=== PATIENT | male | born 1950 | race Caucasian/White ===

== ENCOUNTER 2019-10-21 07:27 | Emergency (ER) | payer OTHER ==
[~2019-10-21] VITALS: Ht 185.4 cm; Wt 73.0 kg
[2019-10-21 07:30] VITALS: BP 167/110
--- NOTE | 2019-10-21 07:51 | NUR ---
Patient ambulated to room with steady gait. Patient don gown. Patient brought with him from home a hard stool sample. Awaiting MD arrival.
== END 2019-10-21 08:50 | disposition home or self-care (01) ==
LOC: ER 07:27
DX: K59.00 Constipation, unspecified (principal); F12.90 Cannabis use, unspecified, uncomplicated
CPT/HCPCS: 99281

== ENCOUNTER 2020-09-23 17:19 | Emergency (ER) | payer OTHER, MEDICARE ==
[~2020-09-23] VITALS: Ht 185.4 cm; Wt 79.5 kg
[2020-09-23 18:14] LABS: BASOPHILS % (AUTO) 0.2 % (0-1); EOSINOPHILS # (AUTO) 0.2 X10'3 (0-0.9); EOSINOPHILS % (AUTO) 2.4 % (0-6); HEMATOCRIT 39.9 % (42.0-52.0); HEMOGLOBIN 13.4 g/dl (14.0-17.9); LYMPHOCYTES # (AUTO) 1.8 X10'3 (1.1-4.8); LYMPHOCYTES % (AUTO) 24.1 % (21-51); MEAN CORPUSCULAR HEMOGLOBIN 28.4 PG (27.0-31.0); MEAN CORPUSCULAR HGB CONC 33.7 g/dL (33.0-36.5); MEAN CORPUSCULAR VOLUME 84.2 FL (78-98); MEAN PLATELET VOLUME 8.9 FL (7.4-10.4); MONOCYTES # (AUTO) 0.7 X10'3 (0-0.9); MONOCYTES % (AUTO) 9.2 % (2-12); NEUTROPHILS # (AUTO) 4.8 X10'3 (1.8-7.7); NEUTROPHILS % (AUTO) 64.1 % (42-75); PLATELET COUNT 192 X10'3 (140-440); RED BLOOD COUNT 4.74 X10'6 (4.70-6.10); RED CELL DISTRIBUTION WIDTH 14.1 % (11.5-14.5); WHITE BLOOD COUNT 7.5 X10'3 (4.5-11.0)
[2020-09-23 18:19] LABS: CLARITY,URINE CLEAR (Clear); COLOR,URINE YELLOW (Yellow); GLUCOSE, URINE NEGATIVE (Neg); KETONES,URINE NEGATIVE (Neg); LEUKOCYTE ESTERASE ,URINE NEGATIVE (Neg); NITRITES, URINE NEGATIVE (Neg); OCCULT BLOOD,URINE TRACE-LYSED (Neg); PH,URINE 6.5 (4.8-8.0); PROTEIN,URINE NEGATIVE (Neg); UROBILINOGEN,URINE 0.2 E.U/dL (0.2-1.0)
[2020-09-23] MEDS ORDERED: normal saline 1000ml 1,000 ML IV ONE (18:20)
[2020-09-23] MEDS ORDERED: bisacodyl 5mg tablet.DR PO ONE (18:20)
[2020-09-23 18:31] LABS: ALANINE AMINOTRANSFERASE 39 U/L (12-78); ALBUMIN/GLOBULIN RATIO 1.3 (1.1-1.5); ALKALINE PHOSPHATASE 84 IU/L (46-116); ANION GAP 9 (8-16); ASPARTATE AMINO TRANSFERASE 25 U/L (10-37); BILIRUBIN,TOTAL 0.4 MG/DL (0.1-1.0); BLOOD UREA NITROGEN 18 MG/DL (7-18); BUN/CREATININE RATIO 20.2 (5.4-32.0); CALCIUM 8.8 MG/DL (8.5-10.1); CHLORIDE 108 MMOL/L (99-107); CREATININE 0.89 MG/DL (0.60-1.10); GLUCOSE 105 MG/DL (70-104); LIPASE 94 U/L (73-393); POTASSIUM 3.6 MMOL/L (3.5-5.1); SODIUM 143 MMOL/L (135-145); TOTAL CARBON DIOXIDE 26.1 MMOL/L (24-32); TOTAL PROTEIN 7.1 G/DL (6.4-8.2); eGFR 85 ML/MIN
[2020-09-23 18:31] LABS: UA COLLECTION TYPE CLN CATCH MIDSTREAM
[2020-09-23 18:35] LABS: BACTERIA,URINE NONE SEEN /HPF (Neg); MUCUS STRANDS NONE SEEN /LPF (Neg); RBC,URINE 0-2 /HPF (0-2); SQUAMOUS EPITHELIAL CELL,UR FEW /LPF (FEW); WBC,URINE NONE SEEN /HPF (0-4)
[2020-09-23] MEDS ORDERED: BISA-78 PO (19:23)
[2020-09-23] MEDS ORDERED: MAGN296S68 PO (19:23)
[2020-09-23] MEDS ORDERED: LORazepam 2 mg/ml vial IV ONE (19:25)
[2020-09-23 19:56] VITALS: BP 155/94
== END 2020-09-23 19:58 | disposition home or self-care (01) ==
LOC: ER 17:20
DX: K59.00 Constipation, unspecified (principal); R10.32 Left lower quadrant pain; I10 Essential (primary) hypertension; F41.9 Anxiety disorder, unspecified; F12.90 Cannabis use, unspecified, uncomplicated; Z79.899 Other long term (current) drug therapy
CPT/HCPCS: 36415; 80053; 81001; 83690; 84145; 85025; 96360; 99283; J7030; 99284